=== PATIENT | male | born 1970 | race Caucasian/White ===

== ENCOUNTER 2023-01-24 09:14 | Emergency (ER) | payer MEDICAID, SELFPAY ==
[2023-01-24 09:15] VITALS: BP 157/105; PULSE 112; RESP 26; TEMP 36.6; O2SAT 93; BMI 19.3
[2023-01-24 09:21] VITALS: O2SAT 93
[2023-01-24 09:58] VITALS: O2SAT 93
--- NOTE | 2023-01-24 09:58 | EKG12_ITS ---
Test Reason : SOB Blood Pressure : / mmHG Vent. Rate : 112 BPM Atrial Rate : 112 BPM P-R Int : 122 ms QRS Dur : 082 ms QT Int : 324 ms P-R-T Axes : 082 270 072 degrees QTc Int : 442 ms Sinus tachycardia Possible Left atrial enlargement Right superior axis deviation Anterior infarct , age undetermined Abnormal ECG Confirmed by JOB ZUNIGA, HALIMA ([id number]), editor house organ ADOLFO SAWYER ([id number]) on 01/26/2023 9:44:55 AM Referred By: Heather Nieves Confirmed By:HALIMA KAISER MD
--- NOTE | 2023-01-24 10:00 | RAD_ITS ---
STUDY: X-RAY CHEST REASON FOR EXAM: Male, 52 years old. dyspnea TECHNIQUE: Single AP portable view of the chest. COMPARISON: None. FINDINGS: There is hyperinflation of the lungs consistent with chronic obstructive lung disease (COPD). There is no demonstrated pleural abnormality. Normal size heart. Normal mediastinum and dong. Normal visualized pulmonary arteries. Normal visualized aortic arch and descending thoracic aorta. Normal visualized thoracic spine. Multiple healed right rib fractures. There is no demonstrated abnormality of the visualized soft tissue structures of the upper abdomen. RAD/Chest 1 View (Portable) IMPRESSION: Emphysema without pneumonia or atelectasis. Electronically Signed: Juan Alberto Peñaloza MD at 10:35 EST ,
--- NOTE | 2023-01-24 10:00 | ED.VIS.DYS ---
HPI History of Present Illness Chief Complaint: Shortness of Breath Detail of Chief Complaint: Shortness of breath Informant: patient Narrative Narrative: Patient presents to the emergency department complaint of shortness of breath. He patient states he started feeling poorly 5 days ago. He developed a cough. Cough is been nonproductive. Patient is worried that he may have pneumonia. He has had chills and sweats but no fever. He denies recent travel or surgery. He denies sick contacts. Patient states that he took 2 COVID tests earlier in the week and both were negative at home. Patient complains of central chest pain with cough. Patient does have history of COPD but not on oxygen. [facility] Medical History (Updated 01/24/23 @ 11:[address] Heather Nieves, ) COPD (chronic obstructive pulmonary disease) Hypertension Home Medications doxycycline monohydrate 100 mg capsule 100 mg PO BID #20 CAPSULES 01/24/23 [Rx Last Taken Unknown] prednisone 20 mg tablet 20 mg PO BID #10 tabs 01/24/23 [Rx Last Taken Unknown] Allergy/AdvReac Type Severity Reaction Status Date / Time No Known Allergies Allergy Verified 01/24/23 09:15 Surgical History no surgical history Social History Smoking Status: Current every day smoker tobacco type: cigarettes ROS ROS ED Review of Systems ROS Unobtainable: other Constitutional Constitutional ED: Reports lethargy; Denies chills, fever(s), sweats or weight loss Eyes Eyes: Denies blurry vision, change in vision or diplopia ENT ENT ED: Denies rhinorrhea or sore throat Cardiovascular Cardiovascular: Reports chest pain; Denies orthopnea or racing heartbeat Respiratory/Chest Respiratory/Chest: Reports cough, dyspnea and dyspnea on exertion; Denies orthopnea or sputum Gastrointestinal Gastrointestinal: Denies abdominal pain, diarrhea, nausea or vomiting Genitourinary Genitourinary ED: Denies dysuria, hematuria or urinary frequency Musculoskeletal Musculoskeletal: Denies arthralgias, back pain, myalgias or neck pain Integumentary Denies abscess, Abrasions or rash Neurologic Neurologic: Denies headache(s) or weakness Psychiatric Psychiatric: Denies anxiety, depression or suicidal thoughts Endocrine Endocrinology: Denies polydipsia, polyphagia or polyuria Hematologic/Lymphatic Hematologic/Lymphatic: Denies easy bleeding, easy bruising or lymphadenopathy Allergic/Immunologic Allergic/Immunologic ED: Denies mouth swelling, tongue swelling or urticaria EXAM Physical Exam Const Vital Signs: 01/24/23 09:15 01/24/23 09:21 01/24/23 10:11 Temperature 97.9 F Temperature Source Temporal Pulse Rate 112 H 112 H Respiratory Rate 26 H 20 H Respiratory Effort Short of Breath Respiratory Depth Shallow Respiratory Pattern Tachypnea Tachypnea Blood Pressure 157/105 H Blood Pressure Mean 122 Pulse Ox 93 Oxygen Delivery Method Room Air Nasal Cannula 01/24/23 09:58 01/24/23 11:39 Temperature Temperature Source Pulse Rate 95 Respiratory Rate 20 H Respiratory Effort Respiratory Depth Respiratory Pattern Blood Pressure 142/90 H Blood Pressure Mean 107 Pulse Ox 93 91 Oxygen Delivery Method Room Air Positive well nourished and well developed General Appearance ED: well developed and NAD HEENT Reports TM's clear and moist mucous membranes normocephalic and atraumatic; Negative for trauma or tenderness Tympanic Membrane ED: Yes TM's clear Eyes PERRL and EOMs intact bilaterally General Eye ED: Negative for pale conjunctiva or scleral icterus Neck no lymphadenopathy, supple and no JVD General: Negative for tenderness Chest Wall inspection of chest normal and palpation of chest normal Chest: Negative for tenderness Resp normal respiratory effort and clear to auscultation bilaterally Resp Narrative: Patient with mild tachypnea. Patient has expiratory wheezes bilaterally with slight decreased breath sounds bilaterally. No significant conversational dyspnea. No accessory muscle use or retractions. Effort and Inspection: Negative for respiratory distress or pain with movement Auscultation: wheezes; Negative for rhonchi or diminished lung sounds Cardio regular rate, regular rhythm, S1 normal heart sound, S2 normal heart sound and no murmurs Peripheral Pulses: pulses 2+ throughout GI normal to inspection, nondistended, normoactive bowel sounds, soft to palpation, non-tender, non-distended and no masses Back/Spine no CVA tenderness and no thoracic nor lumbar tenderness Extremity normal to inspection General Extremety ED: Negative for edema General Extremity: Negative for edema Neuro oriented x3, CN's II-XII intact bilaterally, no sensory deficits noted and gait normal Sensorium / Orientation: awake, alert, oriented to person, oriented to place and oriented to time Motor Exam: strength 5/5 throughout and strength abnormal Psych mental status grossly normal Skin no rashes or lesions noted and no wounds MDM MDM MDM Narrative Medical decision making narrative: Patient presents with cough shortness of breath and wheezing. He ran out of his inhaler. Clinically looks well. Patient was concerned about pneumonia. In the differential would be exacerbation of COPD or pneumonia or viral URI. IV line established. Blood cultures ordered. CBC with differential obtained showed a white count 9.2 with hemoglobin 16 and platelet count 236. Chemistries unremarkable. Lactate normal at 1.4. Troponin was normal at 6. EKG on arrival shows sinus rhythm with a rate of [address] changes. Patient was given DuoNeb aerosol and given Solu-Medrol 125 mg IV. He felt markedly improved and was breathing easier. Patient was ambulated and his O2 sat did not drop below 90%. He will be given a prescription for prednisone as well as doxycycline and albuterol MDI. Patient advised to follow-up with his primary care physician within next 3 to 5 days. He is advised to return if increasing shortness of breath or condition should worsen anyway. COVID and flu testing were negative. Lab Data Attestation: I reviewed the patient's lab results. Labs: Laboratory Results - last 24 hr 01/24/23 01/24/23 09:30 10:16 WBC 9.2 RBC 4.84 Hgb 16.0 Hct 46.5 MCV 96.1 H MCH 33.1 H MCHC 34.4 RDW Std Deviation 42.2 RDW Coeff of Mona 11.9 Plt Count 236 MPV 8.9 Immature Gran % (Auto) 0.400 Neut % (Auto) 78.1 H Lymph % (Auto) 7.9 L Eddy % (Auto) 13.3 H Eos % (Auto) 0.0 Baso % (Auto) 0.3 Absolute Neuts (auto) 7.2 Absolute Lymphs (auto) 0.73 L Nucleated RBC % 0 Sodium 130 L Potassium 4.0 Chloride 97 L Carbon Dioxide 26.0 Anion Gap 7 BUN 9 Creatinine 0.72 Estim Creat Clear Calc 84.94 Est GFR (MDRD) Af Amer 147 Est GFR (MDRD) Non-Af 121 BUN/Creatinine Ratio 12.6 Glucose 123 H Lactic Acid 1.4 Calcium 9.0 Troponin I High Sens 6 Radiography Diagnostic Testing: Clinical Impression(s) from Imaging Studies Chest X-Ray 01/24/23 10:00 IMPRESSION: Emphysema without pneumonia or atelectasis. Electronically Signed: Juan Alberto Peñaloza MD at 10:35 EST , 1 view chest x-ray obtained interpreted by myself as no evidence of infiltrate or pneumothorax or acute process. Radiology in agreement felt there was emphysema without pneumonia or atelectasis. EKG Initial EKG: Attestation: I personally reviewed and interpreted this EKG as follows: Comments: Sinus rhythm with a rate of [address] changes Discharge Plan Triage Chief Complaint: Shortness of Breath ED Provider: Heather Nieves Dx/Rx/DC Orders Clinical Impression: COPD exacerbation Instructions: ED COPD Flare Prescriptions: New doxycycline monohydrate 100 mg capsule 100 mg PO BID Qty: 20 0RF prednisone 20 mg tablet 20 mg PO BID Qty: 10 0RF Primary Care Provider: [facility],Out of Referrals: [facility] Doctor,Out of [Primary Care Provider] - 3-5 Days Disposition Disposition: Home, Self Care Discharge Date/Time: 01/24/23 11:58
[2023-01-24] MEDS: Ipratropium/Albuterol Sulfate 3 ML AMPUL.NEB INHALATION (10:10)
[2023-01-24 10:11] VITALS: PULSE 112; RESP 20
[2023-01-24] MEDS: 0.9% Normal Saline (1000mL) 1,000 ML 150 ML IV (10:15)
[2023-01-24] MEDS: MethylPREDNISolone 125 MG/2 ML Vial IV (10:15)
[2023-01-24 10:19] LABS: Absolute Lymphocyte Count 0.73 X10^3/uL (0.83-4.51); Absolute Neutrophil Count 7.2 X10^3/uL (2.0-7.7); Basophil# 0.03 X10^3/uL; Basophil% 0.3 % (0-1); Hematocrit 46.5 % (40-54); Lymphocyte # 0.73 X10^3/ul (0.83-4.51); Lymphocyte % 7.9 % (19-41); Mean Corp Hgb Conc 34.4 g/dL (32-36); Mean Corpuscular Hgb 33.1 pg (27.0-32.0); Mean Corpuscular Volume 96.1 fL (80-94); Mean Platelet Vol. 8.9 fl (6.2-12.0); Monocyte# 1.23 X10^3/uL; Monocyte% 13.3 % (0-10); NRBC Flagged by Analyzer 0 % (0-5); Neutrophil # 7.21 X10^3/uL (2.7-7.7); Neutrophil % 78.1 % (47-70); Platelet Count 236 K/mm3 (150-450); RBC Distribution Width CV 11.9 % (11.6-14.6); RBC Distribution Width SD 42.2 fl (35.1-43.9); Red Blood Count 4.84 M/mm3 (4.6-6.2); White Blood Count 9.2 K/mm3 (4.4-11.0)
[2023-01-24 10:33] LABS: Anion Gap 7 (5-15); BUN 9 mg/dL (7-18); BUN/Creat Ratio 12.6 RATIO (10-20); Chloride 97 mmol/L (98-107); Creatinine, Serum 0.72 mg/dL (0.70-1.30); EST Glomerular Filtration Rate 121 mL/min (>60); Est Glom Filt Rate - Afr Amer 147 mL/min (>60); Estimated Creatinine Clearance 84.94 ml/min; Glucose 123 mg/dL (74-106); Sodium Level 130 mmol/L (136-145); Troponin-I HS 6 pg/mL (3.0-78.0)
[2023-01-24 11:04] LABS: Lactic Acid 1.4 mmol/L (0.4-1.9)
[2023-01-24 11:38] VITALS: O2SAT 91
[2023-01-24 11:39] VITALS: BP 142/90; PULSE 95; RESP 20; O2SAT 91
[2023-01-24] MEDS: Albuterol Sulfate 8 gm Inhaler (60 puffs) 2 PUFF INHALATION (11:57)
== END 2023-01-24 11:58 | disposition home or self-care (01) ==
PROVIDERS: Emergency Provider Emergency Medicine; Referring Provider Emergency Medicine; Visit Provider Emergency Medicine
DX: J44.1 Chronic obstructive pulmonary disease with (acute) exacerbation (principal); I10 Essential (primary) hypertension; F17.210 Nicotine dependence, cigarettes, uncomplicated
CPT/HCPCS: 71045; 80048; 83605; 84484; 85025; 87040; 93005; 94640; 96361; 96374; 99284; A4216